=== PATIENT | male | born 2005 | race Two or more races ===

== ENCOUNTER 2024-01-10 01:22 | Emergency (ER) | payer OTHER ==
[~2024-01-10] VITALS: Ht 177.8 cm; Wt 79.5 kg
[2024-01-10 02:08] VITALS: TEMP 98.6
[2024-01-10] MEDS ORDERED: RIVA2.5T3 PO (02:18)
[2024-01-10] MEDS: ACETAMINOPHEN 500 MG TABLET PO ONE (02:43)
[2024-01-10] MEDS: PERTUSS(ACELL),DIPH,TET/PF 0.5 ML SYRINGE [ADULT] IM. ONE (02:44)
[2024-01-10] MEDS: BACITRACIN 0.9 GM PACKET OINTMENT TP ONE (02:45)
[2024-01-10 03:34] VITALS: BP 115/70; PULSE 93; RESP 20; O2SAT 97
== END 2024-01-10 04:45 ==
LOC: EMS 01:22
DX: S02.5XXA Fracture of tooth (traumatic), initial encounter for closed fracture (principal); S09.90XA Unspecified injury of head, initial encounter; F17.210 Nicotine dependence, cigarettes, uncomplicated; F12.90 Cannabis use, unspecified, uncomplicated; W19.XXXA Unspecified fall, initial encounter; Y93.89 Activity, other specified; Y92.89 Other specified places as the place of occurrence of the external cause; Y99.8 Other external cause status
CPT/HCPCS: 70450; 70486; 72125; 90471; 90715; 99285